=== PATIENT | male | born 1980 | race African-American/Black ===

== ENCOUNTER 2018-04-23 21:37 | Emergency (ER) | payer OTHER ==
[~2018-04-23] VITALS: Ht 185.4 cm; Wt 86.2 kg
[~2018-04-23 21:37] MED LIST: ULTRAM 50MG TAB50 MG PO
[2018-04-23 22:13] LABS: ABSOLUTE NEUTROPHILS 3.2 thou/uL (1.4-8.2); BASOPHILS 1.3 % (0.0-2.0); EOSINOPHILS 0.4 % (0.0-3.0); HEMATOCRIT 45.7 % (42.0-52.0); HEMOGLOBIN 16.1 gm/dL (14.0-18.0); LYMPHOCYTES 33.9 % (24.0-44.0); MCH 29.9 pg (26.0-34.0); MCHC 35.2 g/dL (28.0-37.0); MCV 84.9 fL (80.0-100.0); MONOCYTES 9.6 % (1.0-8.0); PLATELET COUNT 257 thou/uL (150-400); POLYS 54.8 % (36.0-66.0); RBC 5.38 mil/uL (4.50-6.00); RDW 14.9 % (10.5-14.5); WBC 5.8 thou/uL (4.0-11.0)
[2018-04-23 22:14] LABS: CALCIUM 8.9 mg/dL (8.5-10.1); POTASSIUM 3.6 mmol/L (3.5-5.1)
[2018-04-23 22:21] LABS: ALBUMIN 4.2 g/dL (3.4-5.0); TOTAL BILIRUBIN 0.5 mg/dL (<0.1-1.0); TOTAL PROTEIN 9.4 g/dL (6.4-8.2)
[2018-04-23 23:59] VITALS: BP 170/105
== END 2018-04-24 | disposition home or self-care (01) ==
LOC: ER 21:37
PROVIDERS: Emergency Medicine
DX: I10 Essential (primary) hypertension (principal); R53.81 Other malaise; R51 Headache; R11.2 Nausea with vomiting, unspecified